=== PATIENT | male | born 1940 | race Caucasian/White ===

== ENCOUNTER 2017-03-15 15:00 | Emergency (ER) | payer MEDICARE ==
[~2017-03-15] VITALS: Ht 172.7 cm; Wt 90.0 kg
[2017-03-15 15:21] VITALS: BP 177/140
[2017-03-15 15:28] LABS: HEMATOCRIT 47.6 % (39.2-51.8); HEMOGLOBIN 16.2 g/dL (13.7-18.0); WHITE BLOOD COUNT 10.5 x10^3/uL (3.4-10)
[2017-03-15] MEDS ORDERED: ONDANSETRON 2MG/ML, 2ML IVPush ONE (15:30)
[2017-03-15] MEDS ORDERED: SODIUM CHLORIDE FLUSH 10ML SYR IVF ONE (15:30)
[2017-03-15] MEDS ORDERED: SODIUM CHLORIDE 0.9% 1,000ML IVBOLUS ONE (15:30)
[2017-03-15] MEDS ORDERED: MORPHINE SULFATE 4 MG/ML, 1ML IVPush PRN (15:30)
[2017-03-15] MEDS ORDERED: PLEASE ENTER ALLERGIES MC SCH ×2 (15:30)
[2017-03-15 15:39] LABS: BLOOD UREA NITROGEN 24 mg/dL (7-18)
== END 2017-03-15 17:29 | disposition home or self-care (01) ==
LOC: ED 16:46
DX: S72.141A Displaced intertrochanteric fracture of right femur, initial encounter for closed fracture (principal); S72.21XA Displaced subtrochanteric fracture of right femur, initial encounter for closed fracture; I10 Essential (primary) hypertension; F32.9 Major depressive disorder, single episode, unspecified; M10.9 Gout, unspecified; Z79.899 Other long term (current) drug therapy; Z96.641 Presence of right artificial hip joint; W01.0XXA Fall on same level from slipping, tripping and stumbling without subsequent striking against object, initial encounter; Y93.89 Activity, other specified; Y92.098 Other place in other non-institutional residence as the place of occurrence of the external cause; Y99.8 Other external cause status
CPT/HCPCS: 36415; 80048; 82040; 85025; 99285